=== PATIENT | male | born 1955 | race Caucasian/White ===

== ENCOUNTER 2019-07-14 13:15 | Emergency (ER) | payer OTHER, SELFPAY ==
[2019-07-14 13:29] VITALS: BP 130/74; PULSE 96; RESP 16; TEMP 36.8; O2SAT 97
--- NOTE | 2019-07-14 13:36 | ED.MALEGU ---
HPI - Male Genitourinary General Chief complaint: Urogenital-Male Stated complaint: poss kidney infection Time Seen by Provider: 07/14/19 13:36 Source: patient and RN notes reviewed History of Present Illness HPI Narrative: Patient is a 64-year-old male who presents the urgent care with complaints of urinary urgency, stress incontinence, burning with urination, chills, sweats. Patient states his symptoms originated on Monday and he had chills and sweats yesterday. Patient denies any symptoms today. States that he took ibuprofen and has been drinking cranberry juice. Patient denies any penile discharge. Denies of any abdominal pain, known fever, nausea, vomiting, low back pain. No other acute complaints. No acute distress noted. Patient aware of the plan of care. Related Data Allergies Allergy/AdvReac Type Severity Reaction Status Date / Time No Known Allergies Allergy Verified 07/14/19 13:50 Review of Systems Review of Systems: Narrative: CONSTITUTIONAL: Reports of chills and sweats EYES: Denies visual changes, redness, or discharge. ENT: Denies rhinorrhea, congestion, sore throat, or otalgia. CARDIOVASCULAR: Denies chest pain, palpitations, or edema. RESPIRATORY: Denies cough or dyspnea. GASTROINTESTINAL: Denies abdominal pain, nausea, vomiting, or diarrhea. GENITOURINARY: Reports of urinary frequency, urgency, stress incontinence, burning with urination SKIN: Denies rash or itching. MUSCULOSKELETAL: Denies back pain, joint pain, or myalgia. NEUROLOGIC: Denies headache, numbness, or weakness. All other systems reviewed are negative, except as documented in HPI. PMFSH Comments At the time of my signature, I reviewed and agree with the nursing past medical, surgical, social, and family history. There is no relevant family history pertinent to the patient complaint. Exam Narrative: Exam Narrative: GENERAL: This is a well-nourished, well-developed patient, in no apparent distress. HEAD: normocephalic, atraumatic. EYES: PERRL. Sclera clear/white. Vision is grossly intact. EARS: External ears normal NOSE: External nose normal with no obvious nasal discharge THROAT: Mucous membranes moist NECK: Neck supple CARDIOVASCULAR: Regular rate and rhythm without murmurs, gallops, or rubs. RESPIRATORY: Clear to auscultation. Breath sounds equal bilaterally. No wheezes, rales, or rhonchi. GASTROINTESTINAL: Abdomen soft, non-tender, nondistended. SKIN: warm, intact with no suspicious lesions or rash, good texture and turgor. NEURO: awake, alert, and oriented to person, place and time. There were no obvious focal neurologic abnormalities. EXTREMITIES: No clubbing, cyanosis, or edema. BACK: Negative bilateral CVA tenderness Course Vital Signs Vital signs: Vital Signs Temperature 98.2 F 07/14/19 13:29 Pulse Rate 96 07/14/19 13:29 Respiratory Rate 16 07/14/19 13:29 Blood Pressure 130/74 07/14/19 13:29 Pulse Oximetry 97 07/14/19 13:29 Temperature 98.2 F 07/14/19 13:29 Pulse Rate 96 07/14/19 13:29 Respiratory Rate 16 07/14/19 13:29 Blood Pressure 130/74 07/14/19 13:29 Pulse Oximetry 97 07/14/19 13:29 Reviewed MDM - Male Genitourinary MDM Narrative Medical decision making narrative: Reviewed lab results with the patient. He is aware that urine analysis was positive for urinary tract infection. Advised patient to complete antibiotic regimen as prescribed. Make sure to eat and drink with the medication. Avoid caffeinated and sugary drinks. Increase water intake. If you develop any increase in symptoms associated with low back pain, nausea, vomiting, abdominal pain, blood in the urine, fever?go to the emergency room. Follow-up with PCP within 2 to 5 days or for worsening symptoms or failure to improve. Differential Diagnosis Differential diagnosis: Likely urinary tract infection, urethritis, epididymitis and genital herpes simplex Lab Data Attestation: I reviewed the patient's lab results. Labs:
== END 2019-07-14 14:05 | disposition home or self-care (01) ==
PROVIDERS: Emergency Provider Nurse Practitioner Family
DX: N39.0 Urinary tract infection, site not specified (principal)
CPT/HCPCS: 81003; 87077; 87086; 87088; 87186; 99213; G0463